=== PATIENT | female | born 1980 | race Caucasian/White ===

== ENCOUNTER 2024-05-06 09:22 | Emergency (ER) | payer OTHER, MEDICAID ==
[~2024-05-06] VITALS: Ht 147.3 cm; Wt 59.0 kg
[2024-05-06 09:30] VITALS: BP_SYST 165; PULSE 120; RESP 23; TEMP 98.5; O2SAT 93
[2024-05-06] MEDS: IPRATROPIUM/ALBUTEROL SULFATE 3 ML AMPUL.NEB (DUONEB) INH ONE (09:48)
[2024-05-06 11:20] LABS: COVID19 ANTIGEN SOFIA FIA NEGATIVE (NEGATIVE)
[2024-05-06 11:22] LABS: INFLUENZA TYPE A Negative (NEGATIVE); INFLUENZA TYPE B NEGATIVE (NEGATIVE)
[2024-05-06] MEDS ORDERED: PRED20TA PO (11:28)
[2024-05-06 11:59] VITALS: BP_SYST 128; PULSE 86; RESP 18; TEMP 98.5; O2SAT 97
== END 2024-05-06 11:55 | disposition home or self-care (01) ==
LOC: SED 09:22
DX: J40 Bronchitis, not specified as acute or chronic (principal); Z20.822 Contact with and (suspected) exposure to COVID-19; Z79.899 Other long term (current) drug therapy
CPT/HCPCS: 36415; 71045; 94640; 99284